=== PATIENT | female | born 1985 | race Caucasian/White ===

== ENCOUNTER 2021-04-01 17:32 | Emergency (ER) | payer OTHER ==
[~2021-04-01] VITALS: Ht 152.4 cm; Wt 58.5 kg
[2021-04-01 18:23] VITALS: BP 127/85
[2021-04-01 19:56] LABS: BASOPHILS % (AUTO) 0.3 % (0.0-2.0); EOSINOPHILS # (AUTO) 0.1 K/uL (0-0.4); EOSINOPHILS % (AUTO) 1.1 % (0.0-4.0); HEMATOCRIT 41.6 % (36-48); LYMPHOCYTES # (AUTO) 2.5 K/uL (2.5-16.5); LYMPHOCYTES % (AUTO) 36.3 % (20.5-51.1); MEAN CORPUSCULAR HEMOGLOBIN 33 pg (27-31); MEAN CORPUSCULAR HGB CONC 34 g/dL (33-37); MEAN CORPUSCULAR VOLUME 96.7 fL (80-94); MONOCYTES # (AUTO) 0.4 K/uL (0.8-1.0); MONOCYTES % (AUTO) 6.5 % (1.7-9.3); NEUTROPHILS # (AUTO) 3.8 K/uL (1.8-7.7); NEUTROPHILS % (AUTO) 55.8 % (42.2-75.2); PLATELET COUNT (AUTO) 276 K/uL (140-450); RED CELL DISTRIBUTION WIDTH 11.8 % (11.6-13.7); WHITE BLOOD COUNT (AUTO) 6.9 K/uL (4.8-10.8)
[2021-04-01 20:48] LABS: APPEARANCE,URINE CLEAR (CLEAR); BILIRUBIN,URINE NEGATIVE (NEGATIVE); BLOOD, URINE NEGATIVE (NEGATIVE); COLOR,URINE YELLOW (YELLOW); LEUKOCYTE ESTERASE ,URINE NEGATIVE (NEGATIVE); NITRITE, URINE NEGATIVE (NEGATIVE); UGLUCOSE NEGATIVE (NEGATIVE)
[2021-04-01 21:45] VITALS: BP 122/78
--- NOTE | 2021-04-01 21:45 | NUR ---
Patient discharged with v/s stable. Written and verbal after care instructions given and explained. Patient verbalized understanding. Ambulatory with steady gait. All questions addressed prior to discharge. Advised to follow up with PMD.
== END 2021-04-01 21:45 | disposition home or self-care (01) ==
LOC: MED 17:32
DX: O20.0 Threatened abortion (principal); Z3A.01 Less than 8 weeks gestation of pregnancy; Z88.5 Allergy status to narcotic agent
CPT/HCPCS: 36415; 76801; 81003; 84702; 85025; 86900; 86901; 99284; Q0092

== ENCOUNTER 2021-06-03 16:50 | Observation (INO) | payer OTHER ==
[~2021-06-03] VITALS: Ht 149.9 cm; Wt 61.2 kg
[2021-06-03 17:00] VITALS: BP 97/63
[2021-06-03] MEDS ORDERED: ACETAMINOPHEN 325 MG TAB ONE (19:54)
[2021-06-03] MEDS ORDERED: ACETAMINOPHEN 325 MG TAB PO ONE (19:55)
== END 2021-06-03 20:16 | disposition home or self-care (01) ==
LOC: MLD 16:50
PROVIDERS: ADMIT Obstetrics & Gynecology; ATTEND Obstetrics & Gynecology
DX: O26.852 Spotting complicating pregnancy, second trimester (principal); O26.892 Other specified pregnancy related conditions, second trimester; R51.9 Headache, unspecified; Z3A.19 19 weeks gestation of pregnancy
CPT/HCPCS: 59025; 76817; 81000; G0378; Q0092

== ENCOUNTER 2021-07-19 05:29 | Emergency (ER) | payer OTHER ==
[~2021-07-19] VITALS: Ht 149.9 cm; Wt 64.0 kg
[2021-07-19 05:32] VITALS: BP 110/72
--- NOTE | 2021-07-19 05:40 | NUR ---
Patient ambulated to bed 3.
--- NOTE | 2021-07-19 06:12 | NUR ---
PT BIB SELF WITH COMPLAINT OF SORE THROAT, COUGH WITH PHLEGM, AND DIARRHEA FOR 5 DAYS, SHE HAS TAKEN BENADRYL AND ROBITUSSIN AT HOME. PT IS CURRENTLY 6 MONTHS WITH NO KNOWN COMPLICATIONS, SHE IS A1 WITH NO HISTORY OF COMPLICATIONS. DENIES ANY SOB, N/V, OR MEDICAL CONDITIONS. PMH: NONE
[2021-07-19] MEDS ORDERED: BENZ-301 PO (06:34)
[2021-07-19 07:11] VITALS: BP 110/72
--- NOTE | 2021-07-19 07:12 | NUR ---
Patient discharged with v/s stable. Written and verbal after care instructions given and explained. Patient alert, oriented and verbalized understanding of instructions. Ambulatory with steady gait. All questions addressed prior to discharge. ID band removed. Patient advised to follow up with PMD. Rx of BENZOCAINE/MENTHOL given. Patient educated on indication of medication including possible reaction and side effects. Opportunity to ask questions provided and answered.
== END 2021-07-19 07:12 | disposition home or self-care (01) ==
LOC: MED 05:29
DX: O26.893 Other specified pregnancy related conditions, third trimester (principal); Z20.822 Contact with and (suspected) exposure to COVID-19; J02.9 Acute pharyngitis, unspecified; B34.9 Viral infection, unspecified; R19.7 Diarrhea, unspecified; Z88.5 Allergy status to narcotic agent
CPT/HCPCS: 99283

== ENCOUNTER 2022-05-25 18:18 | Emergency (ER) | payer BC, OTHER ==
[~2022-05-25] VITALS: Ht 152.4 cm; Wt 59.0 kg
[~2022-05-25 18:18] MED LIST: BENZ-301 PO
[2022-05-25 18:22] VITALS: BP 127/86
--- NOTE | 2022-05-25 18:25 | NUR ---
PT AMB TO BED 11.
--- NOTE | 2022-05-25 18:41 | NUR ---
ASSUMED PATIENT CARE, NURSING ASSESSMENT COMPLETED. DR MELENDEZ AT BEDSIDE, MSE COMPLETED.
[2022-05-25] MEDS ORDERED: HYDROmorphone PFS 2 MG/ML SYR IVP ONE (18:50)
--- NOTE | 2022-05-25 19:00 | NUR ---
pt is here because she got hot cooking oil by accident in her lower extrimeites. pt is alert and oriented x4. she having pain in her burn area. notified
[2022-05-25] MEDS ORDERED: ONDANSETRON 4 MG/2 ML VIAL IVP ONE (19:40)
[2022-05-25] MEDS ORDERED: ONDANSETRON 4 MG/2 ML VIAL ONE (19:43)
--- NOTE | 2022-05-25 20:28 | NUR ---
Dr. Barrett examining patient.
[2022-05-25] MEDS ORDERED: HYDR-5080 PO (20:56)
[2022-05-25] MEDS ORDERED: BACI-105 TP (20:57)
[2022-05-25] MEDS ORDERED: BACITRACIN OINT 500 UNITS/GM PKT TP ONE ×2 (21:00)
[2022-05-25 21:27] VITALS: BP 127/86
--- NOTE | 2022-05-25 21:31 | NUR ---
Patient discharged with v/s stable. Written and verbal after care instructions given and explained. Patient verbalized understanding. Ambulatory with steady gait. All questions addressed prior to discharge. Advised to follow up with PMD. pt left with her beloningings
== END 2022-05-25 21:31 | disposition home or self-care (01) ==
LOC: MED 18:18
DX: T25.221A Burn of second degree of right foot, initial encounter (principal); T24.232A Burn of second degree of left lower leg, initial encounter; Z79.899 Other long term (current) drug therapy; Z79.891 Long term (current) use of opiate analgesic; Z79.2 Long term (current) use of antibiotics; Z88.5 Allergy status to narcotic agent; X10.2XXA Contact with fats and cooking oils, initial encounter; Y93.89 Activity, other specified; Y92.89 Other specified places as the place of occurrence of the external cause; Y99.8 Other external cause status
CPT/HCPCS: 16020; 96374; 96375; 99284; J1170; J2405

== ENCOUNTER 2022-06-03 17:43 | Emergency (ER) | payer OTHER ==
[~2022-06-03] VITALS: Ht 152.4 cm; Wt 60.8 kg
[~2022-06-03 17:43] MED LIST changes: +BACI-105 TP; +HYDR-5080 PO
[2022-06-03 17:56] VITALS: BP 115/77
--- NOTE | 2022-06-03 19:58 | NUR ---
PT TAKEN TO BED 8
--- NOTE | 2022-06-03 20:00 | NUR ---
Dr. Gonzalez examining patient.
[2022-06-03] MEDS ORDERED: ONDA8TAB87 PO ×2 (20:09→20:36)
[2022-06-03] MEDS ORDERED: LOPE-289 PO ×2 (20:09→20:36)
[2022-06-03] MEDS ORDERED: CIPR500T4 PO ×2 (20:09→20:36)
[2022-06-03 20:37] VITALS: BP 110/71
== END 2022-06-03 20:38 | disposition home or self-care (01) ==
LOC: MED 17:43
DX: R19.7 Diarrhea, unspecified (principal); R11.2 Nausea with vomiting, unspecified; R10.13 Epigastric pain; Z79.899 Other long term (current) drug therapy; Z79.891 Long term (current) use of opiate analgesic; Z79.2 Long term (current) use of antibiotics; Z88.5 Allergy status to narcotic agent
CPT/HCPCS: 99283